=== PATIENT | male | born 1935 | race Native Hawaiian/Other Pacific Islander ===

== ENCOUNTER 2021-10-17 14:25 | Emergency (ER) | payer OTHER ==
[~2021-10-17] VITALS: Ht 170.2 cm; Wt 76.7 kg
[2021-10-17 14:25] VITALS: BP 107/55; TEMP 97.3
[2021-10-17 14:57] LABS: PLATELET COUNT 148 K/uL (152-353)
[2021-10-17 15:07] LABS: POTASSIUM 3.5 mmol/L (3.6-5.2)
[2021-10-17] MEDS ORDERED: ALLO300T23 PO (19:15)
[2021-10-17] MEDS ORDERED: MEMANTINE HYDRO10 MG PO (19:16)
[2021-10-17] MEDS ORDERED: ESBRIET267 MG PO (19:20)
[2021-10-17] MEDS ORDERED: RABEPRAZOLE SOD20 MG PO (19:22)
[2021-10-17] MEDS ORDERED: ASPIRIN 81 LOW81 MG PO (19:25)
[2021-10-17] MEDS ORDERED: FISH OIL1000 M1 PO (19:27)
[2021-10-17] MEDS ORDERED: D 50005000 UNIT PO (19:28)
[2021-10-17] MEDS ORDERED: TUMERIC PO (19:30)
[2021-10-17] MEDS ORDERED: VITAMIN B COMPL1 TAB PO (19:31)
[2021-10-17] MEDS ORDERED: TAMSULOSIN0.4 MG PO (19:32)
[2021-10-17] MEDS ORDERED: LORA0.5T17 PO (19:33)
[2021-10-17] MEDS ORDERED: NEURONTIN 100M100 MG PO (19:34)
== END 2021-10-17 15:41 | disposition still patient (30) ==
LOC: ED 14:25 → EDSEX 14:25 → ED 15:41
PROVIDERS: Hospitalist
DX: F03.91 Unspecified dementia, unspecified severity, with behavioral disturbance (principal); Z11.52 Encounter for screening for COVID-19; Z04.6 Encounter for general psychiatric examination, requested by authority
CPT/HCPCS: 80053; 85027; 87635; 93005; 99283; U0003